=== PATIENT | male | born 1980 | race Caucasian/White ===

== ENCOUNTER 2022-03-29 03:01 | Emergency (ER) | payer OTHER, SELFPAY ==
[2022-03-29 03:08] VITALS: BP 135/90; PULSE 68; RESP 18; TEMP 36.4; O2SAT 99; BMI 25.8
[2022-03-29 04:08] VITALS: RESP 18
[2022-03-29] MEDS: oxyCODONE-APAP 5-325 mg Tablet 2 TAB PO (04:08)
[2022-03-29 04:14] VITALS: BP 140/82; PULSE 70; RESP 16; O2SAT 97
--- NOTE | 2022-03-29 04:16 | PC.NURSE ---
patient presented with wide spread dental caries. pain has increased over last several days.
--- NOTE | 2022-03-30 15:00 | ED_ITS ---
HPI - Dental/Oral General: Chief complaint: Dental/Oral Stated complaint: dental pain Time Seen by Provider: 03/29/22 03:25 Source: patient History of Present Illness: 41 yo male with dental pain. no fever. MD Complaint: tooth pain Location: Tooth # (29) Onset (ago): day(s) Duration: constant Severity: moderate Relieving factors: nothing Exacerbating factors: chewing Context: history of dental caries and poor dental care Associated symptoms: Denies ear or mastoid pain, fever(s), gum swelling, odynophagia, sore throat or tongue swelling Treatment prior to arrival: none Review of Systems Const: Denies: fever(s) Eyes: Denies: change in vision ENMT: Denies: odynophagia or ear or mastoid pain Card: Denies: chest pain Resp: Denies: dyspnea GI: Denies: abdominal pain All/Imm: Denies: tongue swelling Physical Exam Const: COMMON NORMALS: no acute distress EXAM LIMITATIONS: no altered mental status GENERAL APPEARANCE: cooperative; not ill appearing ORIENTATION/CONSCIOUSNESS: Yes awake HENMT: COMMON NORMALS: normocephalic, atraumatic, TM's normal bilaterally and Normal external nose present HEAD & SCALP: normocephalic and atraumatic FACE & SINUS: normal facial exam and face symmetric NOSE: Normal external nose present and Normal nares present TYMPANIC MEMBRANE: TM's normal bilaterally MOUTH: lip normal and tongue normal; no drooling TEETH & GINGIVA: Yes caries, Yes gingiva abnormal edematous, tender and other (decay with local swelling at29. no abscess) and Yes poor dentition THROAT: posterior oropharynx normal Eye: COMMON NORMALS: Equal, round and reactive pupils present and EOMs intact bilaterally PUPIL: Yes Equal, round and reactive pupils present Neck/C-Spine: COMMON NORMALS: full ROM Chest: COMMONS NORMALS: normal inspection of the chest Resp: COMMON NORMALS: normal respiratory effort Cardio: COMMON NORMALS: regular rate RATE: regular rate Course Vital Signs: Vital signs: Vital Signs Temperature 97.6 F 03/29/22 03:08 Pulse Rate 70 03/29/22 04:14 Respiratory Rate 16 03/29/22 04:14 Blood Pressure 140/82 03/29/22 04:14 Pulse Oximetry 97 03/29/22 04:14 MDM - Dental/Oral Medical Decision Making Rx abx and anti-inflammatories. Dental fu. Discharge Plan Discharge Patient Disposition: Home Clinical Impression: Dental caries, Gingival disease Condition: Stable Prescriptions: New cephalexin 500 mg capsule 500 mg PO Q6H 10 Days Qty: 40 0RF ketorolac 10 mg tablet 10 mg PO TID PRN (Reason: pain) Qty: 10 0RF Discharge Orders: Discharge ED (Routine); Ordered 03/29/22 Ordered By: Rafael Day Discharge Diet: Advance as tolerated Discharge Activity: Resume usual activity Patient Instructions: Opioid Safety Activity Restrictions/Additional Instructions: See a dentist as soon as possible regarding your teeth. Finish your antibiotics completely. 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
== END 2022-03-29 04:17 | disposition home or self-care (01) ==
PROVIDERS: Emergency Provider Emergency Medicine
DX: K02.9 Dental caries, unspecified (principal); K06.9 Disorder of gingiva and edentulous alveolar ridge, unspecified
CPT/HCPCS: 99283

== ENCOUNTER 2022-07-31 17:02 | Observation (INO) | payer SELFPAY ==
[2022-07-31 17:03] VITALS: BP 94/61; PULSE 89; RESP 20; TEMP 36.6; O2SAT 96; BMI 27.2
--- NOTE | 2022-07-31 17:09 | ECG_ITS ---
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 Measurements Intervals [place] Rate: 89 P: 62 AL: 163 QRS: 64 QRSD: 89 T: 43 QT: 342 QTc: 418 Interpretive Statements SINUS RHYTHM No previous ECG available for comparison Electronically Signed On 07-31-2022 17:57:57 CDT by Molly Lara M.D. [id number]
--- NOTE | 2022-07-31 17:10 | W.ED.CHESTPA ---
Documented by User: You Lyle DO 07/31/22 18:04 HPI - Chest Pain General: Chief Complaint: Chest Pain Stated Complaint: chest pain Time Seen by Provider: 07/31/22 17:09 Source: patient Mode of arrival: ambulatory History of Present Illness: 41-year-old male presents emergency room via EMS. Patient reports he has been drinking heavily throughout the day drink at least a 12 pack of some kind of canned cocktail drink. Began having central chest pain was relieved by a single nitro. He was given aspirin and IV fluids in route he is pain-free on arrival he has no known history of coronary artery disease. He had no associated diaphoresis or shortness of breath. He denies any hematemesis or coffee-ground emesis. Patient admits he has been drinking heavily for years MD complaint: chest pain Onset (ago): minute(s) Timing of current episode: episodic Prior episodes: No Pain location: substernal Pain radiation: none Severity: mild Quality: sharp Relieving factors: nitroglycerin Exacerbating factors: nothing Associated symptoms: Deny abdominal pain, diaphoresis, dyspnea, fever(s), leg edema, nausea, palpitations, sense of impending doom, syncope or vomiting Treatment prior to arrival: aspirin and nitroglycerin Review of Systems Const: Denies: fever(s) or diaphoresis Card: Denies: palpitations or syncope Resp: Denies: dyspnea GI: Denies: abdominal pain, nausea or vomiting [facility] ED PFSH: Social History (Updated 07/31/22 @ 17:52 by You Lyle DO) Smoking and tobacco status: current every day smoker Alcohol intake: current Alcohol intake frequency: 3 or more drinks per day Alcohol type: hard liquor Physical Exam Const: COMMON NORMALS: no acute distress GENERAL APPEARANCE: cooperative and comfortable ORIENTATION/CONSCIOUSNESS: Yes awake, Yes oriented to person, Yes oriented to place and Yes oriented to time HENMT: COMMON NORMALS: normocephalic, atraumatic and hearing grossly normal bilaterally HEAD & SCALP: normocephalic and atraumatic Resp: COMMON NORMALS: normal respiratory effort, No retractions, No use of accessory muscles and clear to auscultation bilaterally AUSCULTATION: clear to auscultation bilaterally Cardio: COMMON NORMALS: regular rate, regular rhythm and No murmurs present (Cardio) RATE: regular rate RHYTHM: regular rhythm GI: COMMON NORMALS: Soft to palpation and No hepatosplenomegaly present AUSCULTATION: Yes normoactive bowel sounds PALPATION: Yes Soft to palpation, No Tenderness to palpation present (GI), No Guarding due to palpation present (GI) and Yes No hepatosplenomegaly present Extremity: COMMON NORMALS: normal to inspection, capillary refill normal, no clubbing, cyanosis or edema, no calf tenderness and no pedal edema Neuro: SENSORIUM/ORIENTATION: Yes oriented to person, Yes oriented to place and Yes oriented to time Skin: COMMON NORMALS: no rashes or lesions noted GENERAL SKIN EXAM: no rashes or lesions noted Course Vital Signs: Vital signs: Vital Signs Temperature 97.7 F 08/01/22 00:42 Pulse Rate 68 08/01/22 00:42 Respiratory Rate 15 08/01/22 00:42 Blood Pressure 105/68 08/01/22 00:42 Pulse Oximetry 98 08/01/22 00:42 Oxygen Delivery Me thod 08/01/22 00:42 MDM - Chest Pain Medical Decision Making Care signed out to Dr. Day at change of shift. See final notes for diagnosis and disposition. Lab Data : 07/31/22 17:10 07/31/22 17:10 Radiology Impressions Chest X-Ray 07/31/22 17:58 IMPRESSION: No acute findings. Laboratory Results WBC 6.6 10^3/uL (4.0-10.0) 07/31/22 17:10 RBC 5.06 10^6/uL (4.1-5.3) 07/31/22 17:10 Hgb 15.1 g/dL (11.7-16.6) 07/31/22 17:10 Hct 45.8 % (42.0-52.0) 07/31/22 17:10 MCV 90.5 fl (80-94) 07/31/22 17:10 MCH 29.8 pg (28.0-34.0) 07/31/22 17:10 MCHC 33.0 g/dL (30.0-36.0) 07/31/22 17:10 RDW 12.2 % (12.1-15.1) 07/31/22 17:10 Plt Count 289 10^3/cmm (130-400) 07/31/22 17:10 MPV 11.2 fL (7.4-10.4) H 07/31/22 17:10 Neut % (Auto) 54.3 % 07/31/22 17:10 Lymph % (Auto) 32.6 % 07/31/22 17:10 [place] % (Auto) 9.7 % 07/31/22 17:10 Eos % (Auto) 2.3 % 07/31/22 17:10 Baso % (Auto) 0.6 % 07/31/22 17:10 Neut # (Auto) 3.61 10^3/uL (1.8-7.7) 07/31/22 17:10 Lymph # (Auto) 2.2 10^3/uL (0.8-4.8) 07/31/22 17:10 [place] # (Auto) 0.6 10^3/uL (0.2-0.9) 07/31/22 17:10 Eos # (Auto) 0.2 10^3/uL (0.0-0.8) 07/31/22 17:10 Baso # (Auto) 0.0 10^3/uL (0.0-0.1) 07/31/22 17:10 Nucleated RBC % (auto) 0 % 07/31/22 17:10 Nucleated RBCs # 0.0 /100WBC 07/31/22 17:10 Sodium 139 mmol/L (136-145) 07/31/22 17:10 Potassium 3.1 mmol/L (3.5-5.1) L 07/31/22 17:10 Chloride 104 mmol/L (98-107) 07/31/22 17:10 Carbon Dioxide 20 mmol/L (22-29) L 07/31/22 17:10 Anion Gap 18.1 (5-19) 07/31/22 17:10 BUN 9 mg/dL (6-20) 07/31/22 17:10 Creatinine 0.8 mg/dL (0.7-1.2) 07/31/22 17:10 GFR Calculation 107.1 mL/min (90-130) 07/31/22 17:10 Glucose 68 mg/dL (65-115) 07/31/22 17:10 Calculated Osmolality 285 mOsm/kg (285-295) 07/31/22 17:10 Calcium 9.0 mg/dL (8.5-10.5) 07/31/22 17:10 Total Bilirubin 0.3 mg/dL (0.15-1.2) 07/31/22 17:10 AST 16 U/L (0-40) 07/31/22 17:10 ALT 20 U/L (0-41) 07/31/22 17:10 Alkaline Phosphatase 59 U/L (40-130) 07/31/22 17:10 Troponin T Gen 5 ng/L 160 ng/L (0-15) H* 07/31/22 17:51 Total Protein 6.5 g/dL (6.6-8.7) L 07/31/22 17:10 Albumin 4.4 g/dL (3.5-5.2) 07/31/22 17:10 Globulin 2.1 g/dL (1.3-4.6) 07/31/22 17:10 Lipase 28 U/L (13-60) 07/31/22 17:10 Discharge Plan Discharge Patient Disposition: Admitted As Inpatient Admit Provider: Anupama Batista Clinical Impression: Chest pain, Non-ST elevated myocardial infarction (non-STEMI) Condition: Stable Coding Level of Care Code ED Web Merchandiser for Chg Fwd Exam Detailed Documented by User: Rafael Day DO 08/01/22 03:30 HPI - Chest Pain General: Chief Complaint: Chest Pain Stated Complaint: chest pain Time Seen by Provider: 07/31/22 17:09 PFSH ED PFSH: Social History (Updated 07/31/22 @ 17:52 by You Lyle DO) Smoking and tobacco status: current every day smoker Alcohol intake: current Alcohol intake frequency: 3 or more drinks per day Alcohol type: hard liquor Course Vital Signs: Vital signs: Vital Signs Temperature 97.7 F 08/01/22 00:42 Pulse Rate 68 08/01/22 00:42 Respiratory Rate 15 08/01/22 00:42 Blood Pressure 105/68 08/01/22 00:42 Pulse Oximetry 98 08/01/22 00:42 Oxygen Delivery Me thod 08/01/22 00:42 MDM - Chest Pain Medical Decision Making Care signed out to Dr. Day at change of shift. See final notes for diagnosis and disposition. Patient has a normal EKG. CBC is normal. Potassium is 3.1 and is replaced. However, troponin is 160 initially. This warrants further work-up for non-STEMI. He will be admitted for this. Chest x-ray is negative. He has received Plavix 300 mg, Lovenox here, aspirin prior to arrival, and nitroglycerin prior to arrival. He is not in pain currently. Hospitalist will admit. They have been notified Lab Data : 07/31/22 17:10 07/31/22 17:10 Radiology Impressions Chest X-Ray 07/31/22 17:58 IMPRESSION: No acute findings. Laboratory Results WBC 6.6 10^3/uL (4.0-10.0) 07/31/22 17:10 RBC 5.06 10^6/uL (4.1-5.3) 07/31/22 17:10 Hgb 15.1 g/dL (11.7-16.6) 07/31/22 17:10 Hct 45.8 % (42.0-52.0) 07/31/22 17:10 MCV 90.5 fl (80-94) 07/31/22 17:10 MCH 29.8 pg (28.0-34.0) 07/31/22 17:10 MCHC 33.0 g/dL (30.0-36.0) 07/31/22 17:10 RDW 12.2 % (12.1-15.1) 07/31/22 17:10 Plt Count 289 10^3/cmm (130-400) 07/31/22 17:10 MPV 11.2 fL (7.4-10.4) H 07/31/22 17:10 Neut % (Auto) 54.3 % 07/31/22 17:10 Lymph % (Auto) 32.6 % 07/31/22 17:10 [place] % (Auto) 9.7 % 07/31/22 17:10 Eos % (Auto) 2.3 % 07/31/22 17:10 Baso % (Auto) 0.6 % 07/31/22 17:10 Neut # (Auto) 3.61 10^3/uL (1.8-7.7) 07/31/22 17:10 Lymph # (Auto) 2.2 10^3/uL (0.8-4.8) 07/31/22 17:10 [place] # (Auto) 0.6 10^3/uL (0.2-0.9) 07/31/22 17:10 Eos # (Auto) 0.2 10^3/uL (0.0-0.8) 07/31/22 17:10 Baso # (Auto) 0.0 10^3/uL (0.0-0.1) 07/31/22 17:10 Nucleated RBC % (auto) 0 % 07/31/22 17:10 Nucleated RBCs # 0.0 /100WBC 07/31/22 17:10 Sodium 139 mmol/L (136-145) 07/31/22 17:10 Potassium 3.1 mmol/L (3.5-5.1) L 07/31/22 17:10 Chloride 104 mmol/L (98-107) 07/31/22 17:10 Carbon Dioxide 20 mmol/L (22-29) L 07/31/22 17:10 Anion Gap 18.1 (5-19) 07/31/22 17:10 BUN 9 mg/dL (6-20) 07/31/22 17:10 Creatinine 0.8 mg/dL (0.7-1.2) 07/31/22 17:10 GFR Calculation 107.1 mL/min (90-130) 07/31/22 17:10 Glucose 68 mg/dL (65-115) 07/31/22 17:10 Calculated Osmolality 285 mOsm/kg (285-295) 07/31/22 17:10 Calcium 9.0 mg/dL (8.5-10.5) 07/31/22 17:10 Total Bilirubin 0.3 mg/dL (0.15-1.2) 07/31/22 17:10 AST 16 U/L (0-40) 07/31/22 17:10 ALT 20 U/L (0-41) 07/31/22 17:10 Alkaline Phosphatase 59 U/L (40-130) 07/31/22 17:10 Troponin T Gen 5 ng/L 160 ng/L (0-15) H* 07/31/22 17:51 Total Protein 6.5 g/dL (6.6-8.7) L 07/31/22 17:10 Albumin 4.4 g/dL (3.5-5.2) 07/31/22 17:10 Globulin 2.1 g/dL (1.3-4.6) 07/31/22 17:10 Lipase 28 U/L (13-60) 07/31/22 17:10 Discharge Plan Discharge Patient Disposition: Admitted As Inpatient Admit Provider: Anupama Batista Clinical Impression: Chest pain, Non-ST elevated myocardial infarction (non-STEMI) Condition: Stable Coding Level of Care Code ED 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
[2022-07-31] MEDS: famotidine 20 mg/2 mL INJ 40 MG IVP (17:18)
[2022-07-31] MEDS: sodium chloride 0.9% 1,000 ML 999 ML IV (17:20)
[2022-07-31] MEDS: lidocaine 2% viscous 15 ML, aluminum-mag hydrox-simethicon 30 ML, sucralfate oral liq 1 GM PO (17:20)
[2022-07-31] MEDS: ondansetron 2 mg/ML SDV 2 mL 4 MG IVP (17:20)
[2022-07-31 17:21] LABS: Basophils % 0.6 %; Eosinophils # 0.2 10^3/uL (0.0-0.8); Eosinophils % 2.3 %; Hematocrit 45.8 % (42.0-52.0); Hemoglobin 15.1 g/dL (11.7-16.6); Lymphocytes # 2.2 10^3/uL (0.8-4.8); Lymphocytes % 32.6 %; Mean Corpuscular Hemoglobin 29.8 pg (28.0-34.0); Mean Corpuscular Volume 90.5 fl (80-94); Mean Platelet Volume 11.2 fL (7.4-10.4); Monocytes # 0.6 10^3/uL (0.2-0.9); Monocytes % 9.7 %; Neutrophils # 3.61 10^3/uL (1.8-7.7); Neutrophils % 54.3 %; Nucleated Red Blood Cells % 0 %; Platelet Count 289 10^3/cmm (130-400); Red Blood Count 5.06 10^6/uL (4.1-5.3); Red Cell Distribution Width 12.2 % (12.1-15.1); White Blood Count 6.6 10^3/uL (4.0-10.0)
[2022-07-31 17:58] VITALS: BP 99/65; PULSE 82; RESP 14; O2SAT 95
--- NOTE | 2022-07-31 17:58 | XRR_ITS ---
PROCEDURE INFORMATION: Exam: XR Chest Exam date and time: 07/31/2022 6:04 PM Age: 41 years old Clinical indication: Pain; Chest pressure; Additional info: Dyspnea/cough TECHNIQUE: Imaging protocol: Radiologic exam of the chest. Views: 1 view. COMPARISON: No relevant prior studies available. FINDINGS: Lungs: Unremarkable. No consolidation. Pleural spaces: Unremarkable. No pleural effusion. No pneumothorax. Heart/Mediastinum: Unremarkable. No cardiomegaly. Bones/joints: Unremarkable. XR/XR chest 1V portable [id number] IMPRESSION: No acute findings.
[2022-07-31 18:09] LABS: Alanine Aminotransferase 20 U/L (0-41); Albumin Level 4.4 g/dL (3.5-5.2); Alkaline Phosphatase 59 U/L (40-130); Anion Gap 18.1 (5-19); Aspartate Amino Transferase 16 U/L (0-40); Blood Urea Nitrogen 9 mg/dL (6-20); Carbon Dioxide 20 mmol/L (22-29); Chloride 104 mmol/L (98-107); Globulin 2.1 g/dL (1.3-4.6); Glomerular Filtration Rate 107.1 mL/min (90-130); Glucose 68 mg/dL (65-115); Lipase 28 U/L (13-60); Osmolality Calculated 285 mOsm/kg (285-295); Potassium 3.1 mmol/L (3.5-5.1); Sodium 139 mmol/L (136-145); Total Bilirubin 0.3 mg/dL (0.15-1.2); Total Protein 6.5 g/dL (6.6-8.7)
[2022-07-31 18:30] VITALS: BP 94/67; PULSE 80; RESP 14; O2SAT 95
[2022-07-31 19:02] LABS: Troponin T (5th) Once 160 ng/L (0-15)
--- NOTE | 2022-07-31 19:56 | ECG_ITS ---
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 Measurements Intervals [place] Rate: 75 P: 51 [place]: 143 QRS: 52 QRSD: 89 T: 30 QT: 354 QTc: 396 Interpretive Statements SINUS RHYTHM Compared to ECG 07/31/2022 17:09:00 No significant changes Electronically Signed On 08-01-2022 10:52:37 CDT by Molly Lara M.D. [id number]
[2022-07-31 20:39] VITALS: BP 105/70; PULSE 88; RESP 16; TEMP 37.1; O2SAT 96; BMI 27.2
[2022-07-31 20:39] LABS: Troponin T (5th) Once 6 ng/L (0-15)
[2022-07-31 20:41] VITALS: PULSE 90
--- NOTE | 2022-07-31 21:55 | ECG_ITS ---
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 Measurements Intervals [place] Rate: 71 P: 72 MT: 155 QRS: 73 QRSD: 89 T: 48 QT: 363 QTc: 396 Interpretive Statements SINUS RHYTHM Compared to ECG 07/31/2022 20:18:21 No significant changes Electronically Signed On 08-01-2022 10:56:11 CDT by Molly Lara M.D. [id number]
[2022-07-31 22:01] VITALS: PULSE 80
[2022-07-31] MEDS: clopidogrel 300 mg Tablet PO (22:13)
[2022-07-31] MEDS: enoxaparin 80 mg/0.8 mL Syringe SUBCUT (22:13)
--- NOTE | 2022-07-31 22:36 | P.HP_ITS ---
Providers/Chief Complaint Admitting Physician: Anupama Batista MD Chief Complaint: chest pain History of Present Illness Baron Killian is a 41 year old male who presented to the emergency room today with complaints of chest pain after having drinking binge all day. He drank a 12 pack of a cocktail drink, does not recall exactly which 1 but may have been whiskey. He was concerned he may be having a heart attack therefore called EMS which brought him in. He received aspirin and nitro on the way. He has no diarrhea no associated symptoms such as dyspnea palpitations syncope. Denies any current abdominal pain nausea or vomiting. No hematemesis or GI bleeding otherwise. He received GI cocktail which appears to have relieved his symptoms. As part of cardiology evaluation EKGs were performed which did not show any acute ST-T wave changes. However his baseline troponin returned at 160 and he was recommended to stay for observation. He denies any past history of hypertension diabetes dyslipidemia or CAD. Review of Systems General: Reports: 10 or more systems reviewed and unremarkable except in HPI and below Const: Denies: fever(s), chills or body aches Eyes: Denies: change in vision, blurry vision or photophobia ENMT: Reports: hoarseness; Denies: throat pain, enlarged tonsils, odynophagia or nasal congestion Card: Denies: chest pain, palpitations, irregular heart rhythm, edema, swelling of feet/ankles, lightheadedness, pre-syncope, dyspnea on exertion or orthopnea Resp: Denies: dyspnea, productive cough, non-productive cough, wheezing, stridor, pain on inspiration, change in phlegm color, hemoptysis or chest congestion GI: Denies: abdominal pain, nausea, vomiting, hematemesis, coffee ground emesis, dysphagia, heartburn, diarrhea, constipation, GI cramping, change in stool character, hematochezia or melena : Denies: flank pain, dysuria, urinary frequency, urinary urgency, urinary hesitancy or hematuria Musc: Denies: neck pain, back pain, extremity pain, joint swelling, joint warmth or deformity Neuro: Denies: headache(s), numbness in extremities, weakness in extremities, sensory changes, difficulty walking, frequent falls, dizziness, vertigo, behav ioral changes, Slurred speech present or seizure-like activity Psych: Denies: anxiety, depression, suicidal ideation or homicidal ideation Endo: Denies: polyuria, polydipsia, tired all the time, cold intolerance or hot flashes Joshua/Lymph: Denies: easy bruising or easy bleeding Medications/Allergies Home Medications Medication Instructions Recorded Confirmed Last Taken Type ketorolac 10 mg tablet 10 mg PO TID PRN pain #10 tabs 03/29/22 Unknown Rx Allergies Allergy/AdvReac Type Severity Reaction Status Date / Time No Known Allergies Allergy Verified 07/31/22 17:13 PFSH Acute PFSH: Social History (Updated 07/31/22 @ 17:52 by You Lyle DO) Smoking and tobacco status: current every day smoker Alcohol intake: current Alcohol intake frequency: 3 or more drinks per day Alcohol type: hard liquor Vitals/I&O/Wt Last Vital Signs Temp 98 F 07/31/22 17:03 Pulse 80 07/31/22 18:30 Resp 14 07/31/22 18:30 BP 94/67 07/31/22 18:30 Pulse Ox 95 07/31/22 18:30 O2 Del Method 07/31/22 18:30 07/31/22 07/31/22 07/31/22 06:59 14:59 22:59 Intake Total 1000 / 1000 Balance 1000 / 1000 Weight last 48 hrs Weight 86.183 kg Physical Exam Narrative: General: No acute distress, AO x3 HEENT: PERRLA, pupils bilaterally equal and reactive, pallors not present Chest: Normal vesicular breath sounds, no added sounds, equal good air entry bilaterally CVS: S1-S2 regular, no murmurs, no tachycardia, no gallops, no rubs Abdomen: Soft, nontender, no organomegaly, bowel sounds present Neuro: No focal deficits, no facial deformity, AO x3, power 5/5 in all limbs Data : 07/31/22 17:10 07/31/22 17:10 Other Labs: Radiology Impressions Chest X-Ray 07/31/22 17:58 IMPRESSION: No acute findings. Laboratory Results WBC 6.6 10^3/uL (4.0-10.0) 07/31/22 17:10 RBC 5.06 10^6/uL (4.1-5.3) 07/31/22 17:10 Hgb 15.1 g/dL (11.7-16.6) 07/31/22 17:10 Hct 45.8 % (42.0-52.0) 07/31/22 17:10 MCV 90.5 fl (80-94) 07/31/22 17:10 MCH 29.8 pg (28.0-34.0) 07/31/22 17:10 MCHC 33.0 g/dL (30.0-36.0) 07/31/22 17:10 RDW 12.2 % (12.1-15.1) 07/31/22 17:10 Plt Count 289 10^3/cmm (130-400) 07/31/22 17:10 MPV 11.2 fL (7.4-10.4) H 07/31/22 17:10 Neut % (Auto) 54.3 % 07/31/22 17:10 Lymph % (Auto) 32.6 % 07/31/22 17:10 [place] % (Auto) 9.7 % 07/31/22 17:10 Eos % (Auto) 2.3 % 07/31/22 17:10 Baso % (Auto) 0.6 % 07/31/22 17:10 Neut # (Auto) 3.61 10^3/uL (1.8-7.7) 07/31/22 17:10 Lymph # (Auto) 2.2 10^3/uL (0.8-4.8) 07/31/22 17:10 [place] # (Auto) 0.6 10^3/uL (0.2-0.9) 07/31/22 17:10 Eos # (Auto) 0.2 10^3/uL (0.0-0.8) 07/31/22 17:10 Baso # (Auto) 0.0 10^3/uL (0.0-0.1) 07/31/22 17:10 Nucleated RBC % (auto) 0 % 07/31/22 17:10 Nucleated RBCs # 0.0 /100WBC 07/31/22 17:10 Sodium 139 mmol/L (136-145) 07/31/22 17:10 Potassium 3.1 mmol/L (3.5-5.1) L 07/31/22 17:10 Chloride 104 mmol/L (98-107) 07/31/22 17:10 Carbon Dioxide 20 mmol/L (22-29) L 07/31/22 17:10 Anion Gap 18.1 (5-19) 07/31/22 17:10 BUN 9 mg/dL (6-20) 07/31/22 17:10 Creatinine 0.8 mg/dL (0.7-1.2) 07/31/22 17:10 GFR Calculation 107.1 mL/min (90-130) 07/31/22 17:10 Glucose 68 mg/dL (65-115) 07/31/22 17:10 Calculated Osmolality 285 mOsm/kg (285-295) 07/31/22 17:10 Calcium 9.0 mg/dL (8.5-10.5) 07/31/22 17:10 Total Bilirubin 0.3 mg/dL (0.15-1.2) 07/31/22 17:10 AST 16 U/L (0-40) 07/31/22 17:10 ALT 20 U/L (0-41) 07/31/22 17:10 Alkaline Phosphatase 59 U/L (40-130) 07/31/22 17:10 Troponin T Gen 5 ng/L 6 ng/L (0-15) 07/31/22 20:04 Total Protein 6.5 g/dL (6.6-8.7) L 07/31/22 17:10 Albumin 4.4 g/dL (3.5-5.2) 07/31/22 17:10 Globulin 2.1 g/dL (1.3-4.6) 07/31/22 17:10 Lipase 28 U/L (13-60) 07/31/22 17:10 A&P Assessment and plan (1) Chest pain: (2) Alcohol dependence: Plan Baron Killian is a 41-year-old male presenting today with chest pain after binge drinking all day. Suspect that his signs and symptoms are more likely related to gastritis, likely alcohol induced. No GI bleed currently His symptoms are much improved after receiving a GI cocktail. EKGs are without any acute ST-T wave changes. His baseline troponin came back significantly elevated at 160 which was concerning for ACS. However at 2 hours his troponin is now only at 6. I suspect that one of these numbers, either the baseline or the 2 hour is in fact a lab error. Lab has been contacted to make them aware of the gross discrepancy in results. It does not make any clinical sense for troponin to trend down from 1 60 to 6 within a matter of 2 hours. We will order a fresh troponin series starting now and further recommendations to be made based on results once accuracy is verified. He is chest pain free at the time of my assesment. Check alcohol level, monitor for signs of withdrawal. Attestations Medical Necessity Statement*: Observation. anticipate less than 2 midnight s [place] for above defined care Coding Level of Care Code Acute Animal Ecologist for [facility] Joey Diagnoses Chest pain R07.9 Alcohol dependence F10.20
[2022-07-31 23:20] LABS: Alcohol Level 25 mg/dL (0-10)
[2022-07-31 23:22] LABS: Troponin T (5th) Once 6 ng/L (0-15)
[2022-08-01 00:42] VITALS: BP 105/68; PULSE 68; RESP 15; TEMP 36.5; O2SAT 98
[2022-08-01 01:00] LABS: Troponin 5 2HR Delta 0 ABS# (0-10)
--- NOTE | 2022-08-01 01:55 | ECG_ITS ---
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 Measurements Intervals [place] Rate: 71 P: 50 [place]: 158 QRS: 62 QRSD: 92 T: 45 QT: 367 QTc: 401 Interpretive Statements SINUS RHYTHM Compared to ECG 07/31/2022 21:57:57 No significant changes Electronically Signed On 08-01-2022 10:54:13 CDT by Molly Lara M.D. [id number]
[2022-08-01 04:45] LABS: Basophils % 0.5 %; Eosinophils # 0.2 10^3/uL (0.0-0.8); Eosinophils % 2.6 %; Hemoglobin 15.1 g/dL (11.7-16.6); Lymphocytes # 1.9 10^3/uL (0.8-4.8); Lymphocytes % 32.8 %; Mean Corpuscular HGB Conc 31.5 g/dL (30.0-36.0); Mean Corpuscular Volume 95.2 fl (80-94); Mean Platelet Volume 10.8 fL (7.4-10.4); Monocytes # 0.4 10^3/uL (0.2-0.9); Monocytes % 7.6 %; Neutrophils # 3.25 10^3/uL (1.8-7.7); Neutrophils % 56.2 %; Nucleated Red Blood Cells % 0 %; Platelet Count 248 10^3/cmm (130-400); Red Blood Count 5.04 10^6/uL (4.1-5.3); Red Cell Distribution Width 12.4 % (12.1-15.1); White Blood Count 5.8 10^3/uL (4.0-10.0)
[2022-08-01 05:01] VITALS: PULSE 80
[2022-08-01 05:03] LABS: Estmated Average Glucose 100; Hemoglobin A1C 5.1 % (4.0-6.0)
[2022-08-01 05:11] VITALS: BP 113/79; PULSE 67; RESP 15; TEMP 36.6; O2SAT 98
[2022-08-01 05:14] LABS: Alanine Aminotransferase 17 U/L (0-41); Albumin Level 4.1 g/dL (3.5-5.2); Alkaline Phosphatase 56 U/L (40-130); Anion Gap 10.9 (5-19); Aspartate Amino Transferase 15 U/L (0-40); Blood Urea Nitrogen 7 mg/dL (6-20); Calcium 8.5 mg/dL (8.5-10.5); Carbon Dioxide 24 mmol/L (22-29); Chloride 105 mmol/L (98-107); Chol HDL Ratio 4.44 mg/dL (1.0-5.00); Cholesterol 182 mg/dL (0-200); Glomerular Filtration Rate 124.9 mL/min (90-130); Glucose 80 mg/dL (65-115); HDL Cholesterol 41 mg/dL (60-100); LDL Cholesterol Calculated 125 mg/dL (50-129); LDL HDL Ratio 3.05 RATIO (0.00-3.22); Magnesium 2.2 mg/dL (1.7-2.3); Osmolality Calculated 279 mOsm/kg (285-295); Potassium 3.9 mmol/L (3.5-5.1); Sodium 136 mmol/L (136-145); Total Bilirubin 0.5 mg/dL (0.15-1.2); Total Protein 6.1 g/dL (6.6-8.7); Triglycerides 81 mg/dL (0-150)
[2022-08-01 05:31] LABS: Troponin 5 6HR Delta 0 ng/L (0-12)
[2022-08-01 07:26] VITALS: BP 115/78; PULSE 63; RESP 16; O2SAT 97
--- NOTE | 2022-08-01 07:30 | P.DS_ITS ---
Discharge Providers Date of Admission: 07/31/22 19:44 Date of Discharge: August 01, 2022 Attending Provider at Admission: Anupama Batista MD Attending Provider at Discharge: Anupama Batista MD Diagnoses at Discharge Discharge Diagnosis (1) Chest pain: Details from hospital stay: Resolved Status: Acute (2) Alcohol dependence: Details from hospital stay: Counseled regarding alcohol cessation Status: Acute (3) Gastritis: Status: Acute Reason for Visit Reason for Visit: chest pain Hospital Course Hospital Course Baron Killian is a 41-year-old male who presented to the emergency room last evening with complaints of chest pain after binge alcohol drinking. His symptoms resolved after being given GI cocktail. Clinical impression was that of acute gastritis precipitated by binge alcohol drinking, however his baseline troponin came back elevated at 160. EKG did not show any acute ST-T wave changes, however given the significantly elevated troponin he was admitted to the hospital in view of NSTEMI. He did receive Plavix and Lovenox 1 mg/kg one- time. His 2-hour troponin then returned at 6. Since it was clinically incompatible to have a baseline troponin of 160 which normalized at 2 hours, results were discussed with the lab and after investigation it was discovered that there had been a specimen mixup in the lab. The baseline troponin which was reported at 160 was incorrect. It belongs to a different patient. Patient's baseline troponin was 6. To be absolutely certain that the patient is not in fact having an NSTEMI, the whole series was again completed at 2 and 6 hours. Troponin remained normal both at 2-hour and 6-hour additionally. Patient was informed about the error in the lab. He has had no more chest pain since that first episode. Symptoms remain resolved after GI cocktail. He is being discharged in stable condition. There are no signs of hematemesis or melena. Overall clinical impression is that of gastritis precipitated by acute alcohol binge drinking. Protonix 40 mg twice daily has been recommended at discharge for 14 days. Physical Exam Narrative: General: No acute distress, AO x3 HEENT: PERRLA, pupils bilaterally equal and reactive, pallors not present Chest: Normal vesicular breath sounds, no added sounds, equal good air entry bilaterally CVS: S1-S2 regular, no murmurs, no tachycardia, no gallops, no rubs Abdomen: Soft, nontender, no organomegaly, bowel sounds present Neuro: No focal deficits, no facial deformity, AO x3, power 5/5 in all limbs Discharge Data Studies Completed and Pending Completed Studies During Hospitalization Category Date Time Status XR chest 1V portable [id number] Stat Exams 07/31/22 17:58 Completed Radiology Impressions Chest X-Ray 07/31/22 17:58 IMPRESSION: No acute findings. Laboratory Results WBC 5.8 10^3/uL (4.0-10.0) 08/01/22 03:42 RBC 5.04 10^6/uL (4.1-5.3) 08/01/22 03:42 Hgb 15.1 g/dL (11.7-16.6) 08/01/22 03:42 Hct 48.0 % (42.0-52.0) 08/01/22 03:42 MCV 95.2 fl (80-94) H D 08/01/22 03:42 MCH 30.0 pg (28.0-34.0) 08/01/22 03:42 MCHC 31.5 g/dL (30.0-36.0) 08/01/22 03:42 RDW 12.4 % (12.1-15.1) 08/01/22 03:42 Plt Count 248 10^3/cmm (130-400) 08/01/22 03:42 MPV 10.8 fL (7.4-10.4) H 08/01/22 03:42 Neut % (Auto) 56.2 % 08/01/22 03:42 Lymph % (Auto) 32.8 % 08/01/22 03:42 [place] % (Auto) 7.6 % 08/01/22 03:42 Eos % (Auto) 2.6 % 08/01/22 03:42 Baso % (Auto) 0.5 % 08/01/22 03:42 Neut # (Auto) 3.25 10^3/uL (1.8-7.7) 08/01/22 03:42 Lymph # (Auto) 1.9 10^3/uL (0.8-4.8) 08/01/22 03:42 [place] # (Auto) 0.4 10^3/uL (0.2-0.9) 08/01/22 03:42 Eos # (Auto) 0.2 10^3/uL (0.0-0.8) 08/01/22 03:42 Baso # (Auto) 0.0 10^3/uL (0.0-0.1) 08/01/22 03:42 Nucleated RBC % (auto) 0 % 08/01/22 03:42 Nucleated RBCs # 0.0 /100WBC 08/01/22 03:42 Sodium 136 mmol/L (136-145) 08/01/22 03:42 Potassium 3.9 mmol/L (3.5-5.1) 08/01/22 03:42 Chloride 105 mmol/L (98-107) 08/01/22 03:42 Carbon Dioxide 24 mmol/L (22-29) 08/01/22 03:42 Anion Gap 10.9 (5-19) 08/01/22 03:42 BUN 7 mg/dL (6-20) 08/01/22 03:42 Creatinine 0.7 mg/dL (0.7-1.2) 08/01/22 03:42 GFR Calculation 124.9 mL/min (90-130) 08/01/22 03:42 Glucose 80 mg/dL (65-115) 08/01/22 03:42 Estimat Average Glucose 100 08/01/22 03:42 Hemoglobin A1c 5.1 % (4.0-6.0) 08/01/22 03:42 Calculated Osmolality 279 mOsm/kg (285-295) L 08/01/22 03:42 Calcium 8.5 mg/dL (8.5-10.5) 08/01/22 03:42 Magnesium 2.2 mg/dL (1.7-2.3) 08/01/22 03:42 Total Bilirubin 0.5 mg/dL (0.15-1.2) 08/01/22 03:42 AST 15 U/L (0-40) 08/01/22 03:42 ALT 17 U/L (0-41) 08/01/22 03:42 Alkaline Phosphatase 56 U/L (40-130) 08/01/22 03:42 Troponin T Gen 5 ng/L 6 ng/L (0-15) 07/31/22 22:55 Troponin T 120 Minute 6.00 ng/L (0-15) 07/31/22 23:45 Delta Troponin T 0 ABS# (0-10) 07/31/22 23:45 Troponin T Hi Sens 6Hr 6.00 ng/L (0-15) 08/01/22 03:42 Troponin T Hi Sens 6Hr Delta 0 ng/L (0-12) 08/01/22 03:42 Total Protein 6.1 g/dL (6.6-8.7) L 08/01/22 03:42 Albumin 4.1 g/dL (3.5-5.2) 08/01/22 03:42 Globulin 2.0 g/dL (1.3-4.6) 08/01/22 03:42 Triglycerides 81 mg/dL (0-150) 08/01/22 03:42 Cholesterol 182 mg/dL (0-200) 08/01/22 03:42 LDL Cholesterol, Calc 125 mg/dL (50-129) 08/01/22 03:42 HDL Cholesterol 41 mg/dL (60-100) L 08/01/22 03:42 LDL/HDL Ratio 3.05 RATIO (0.00-3.22) 08/01/22 03:42 Cholesterol/HDL Ratio 4.44 mg/dL (1.0-5.00) 08/01/22 03:42 Lipase 28 U/L (13-60) 07/31/22 17:10 Ethyl Alcohol 25 mg/dL (0-10) H 07/31/22 22:55 Vitals Last Vital Signs Temp 97.8 F 08/01/22 05:11 Pulse 63 08/01/22 07:26 Resp 16 08/01/22 07:26 BP 115/78 08/01/22 07:26 Pulse Ox 97 08/01/22 07:26 O2 Del Method 08/01/22 07:26 Discharge Plan Discharge Patient Disposition: Home Condition: Stable Prescriptions: New pantoprazole 40 mg Tablet,Delayed Release (Dr/Ec) 40 mg PO BIDWM 14 Days Qty: 28 0RF Discontinued ketorolac 10 mg tablet 10 mg PO TID PRN (Reason: pain) Qty: 10 0RF Discharge Orders: Discharge Order (Routine); Ordered 08/01/22 Ordered By: Anupama Batista Discharge Diet: Advance as tolerated Discharge Activity: Resume usual activity Patient Instructions: Pantoprazole (By mouth) (Protonix), Angina (DC), Opioid Safety Discharge Attestations Time Spent in Discharge Care*: less than 30 min Quality Metrics Clinical Quality Measures [ No reported AMI, CVA or VTE this stay] Coding Level of Care Code Acute Chg FW DC note Diagnoses Chest pain R07.9 Alcohol dependence F10.20 Gastritis K29.70
[2022-08-01] MEDS: pantoprazole DR 40 mg Tablet PO (09:17)
[2022-08-01 10:05] VITALS: BP 115/78; PULSE 63; RESP 16; O2SAT 97
== END 2022-08-01 09:25 | disposition home or self-care (01) ==
LOC: ER 18:30 → MEDSURG 20:21
PROVIDERS: Family Medicine; Admitting Provider Student in an Organized Health Care Education/Training Program; Emergency Provider Emergency Medicine; Visit Provider Student in an Organized Health Care Education/Training Program
DX: R07.9 Chest pain, unspecified (principal); F10.20 Alcohol dependence, uncomplicated; K29.70 Gastritis, unspecified, without bleeding; F17.200 Nicotine dependence, unspecified, uncomplicated
CPT/HCPCS: 36415; 71045; 80053; 80061; 80307; 83036; 83690; 83735; 84484; 85025; 93005; 96361; 96372; 96374; 96375; 99285; G0378; J1650; J2405; J3490; J7030